=== PATIENT | female | born 1960 | race Caucasian/White ===

== ENCOUNTER 2019-09-17 19:20 | Observation (INO) | payer OTHER ==
[~2019-09-17] VITALS: Ht 165.1 cm; Wt 65.5 kg
[~2019-09-17 19:20] MED LIST: DOXYCYCLINE HY100 MG PO; LEVAQUIN500 MG PO; MERREM1 GM IV; VANCOMYCIN1 GM/250 M IV
--- OUTSIDE RECORDS SUMMARY | 2019-09-17 19:23 | XMS REPORT ---
Author Author [facility] Address Unknown Phone Unavailable Care Team Providers Care Ring Facer Name Role Phone HARJEET DE PAZ Unavailable Unavailable Problems This patient has no known problems. Allergies, Adverse Reactions, Alerts This patient has no known allergies or adverse reactions. Medications This patient has no known medications. Results Test Description Test Time Test Comments Text Results Atomic Results Result Comments CT CHEST WO [facility] [address] [address] Patient Name: JUDY ROLLINS MR #: [id number] : 1960 Age/Sex: 57/F Req #: [id number] Adm Physician: Ordered by: LEILA MAHARAJ MD Report #: [id number] Location: ER Room/Bed: Procedure: [id number] CT/CT CHEST WO Exam Date: 08/09/17 Exam Time: 1635 REPORT STATUS: Signed PROCEDURE: CT CHEST WITHOUT CONTRAST CT scan of the chest WITHOUT intravenous contrast, using standard protocol. TECHNIQUE: The chest was scanned utilizing a multidetector helical scanner from the apex to the level of the adrenal glands. Coronal and sagittal multiplanar reformations were obtained. DLP: 372.50 mGy-cm COMPARISON: [facility], CT, CT CHEST WO, 07/02/2017, 9:56. INDICATIONS: PNEUMONIA FINDINGS: Lines/tubes: None. Lungs and Airways: The lungs and airways are normal with no focal abnormality demonstrated. No pneumonia or consolidation. Pleura: The pleural spaces are clear. Heart and mediastinum: The thyroid gland is normal. No significant mediastinal, hilar or axillary lymphadenopathy is seen. The heart and pericardium are within normal limits. Soft tissues: Normal. Abdomen: The spleen is enlarged but not completely visualized. Bones: The visualized bony thorax is within normal limits. IMPRESSION: 1. Unremarkable CT scan of the chest; specifically there is no evidence of consolidation. 2. The spleen appears enlarged. Chelsea Anderson D.O. Dictated by: Chelsea Anderson D.O. on 08/09/2017 at 17:29 Electronically approved by: Chelsea Anderson D.O. on 08/09/2017 at 17:29 Dictated By: CHELSEA ANDERSON DO 28 Transcribed By: ELLY on 08/09/171728 COPY TO: LEILA MAHARAJ MD CT ABDOMEN/PELVIS W [address] [address] Patient Name: JUDY ROLLINS MR #: [id number] : 1960 Age/Sex: 57/F Req #: [id number] Adm Physician: HARJEET DE PAZ MD Ordered by: LEILA MAHARAJ MD Report #: [id number] Location: [facility] Room/Bed: [address] [address] Procedure: [id number] CT/CT ABDOMEN/PELVIS W Exam Date: 08/09/17 Exam Time: 2129 REPORT STATUS: Signed EXAM: CT ABDOMEN AND PELVIS with IV CONTRAST DATE: 08/09/2017 3:24 PM Time stamp on Exam: 2143 hours INDICATION: Elevated liver enzymes COMPARISON: CT of the chest without IV contrast July 02, 2017 TECHNIQUE: The abdomen and pelvis were scanned using a multidetector helical scanner. Coronal and sagittal reformations were obtained. Routine protocol performed. IV Contrast: 100 cc Isovue-370 Oral Contrast: Water CTDIvol has been reviewed. It is below the limits set by the Radiation Protocol Committee (RPC). FINDINGS: LOWER THORAX: No consolidations LIVER: Hepatomegaly, cirrhotic liver morphology and nodular contour. 7 mm hypodensity in segment 4A incompletely characterized on this exam. BILIARY: Small layering gallstone in an otherwise unremarkable gallbladder. No biliary dilation. SPLEEN: Splenomegaly to 16 cm in length. PANCREAS: No masses ADRENALS: No nodules KIDNEYS: Symmetric perfusion. No enhancing masses. No hydronephrosis. GI TRACT: No distention, wall thickening or evidence of obstruction. VESSELS: Atherosclerotic changes of the abdominal aorta without aneurysm. Conventional hepatic arterial anatomy. The main portal vein is enlarged and appears patent. The splenic vein is patent. Incidental circumaortic left renal vein. PERITONEUM/RETROPERITONEUM: No free air or fluid LYMPH NODES: No lymphadenopathy REPRODUCTIVE ORGANS: Unremarkable BLADDER: Unremarkable SOFT TISSUES: Unremarkable BONES: No suspicious bone lesions. IMPRESSION: Cirrhosis with evidence of portal hypertension. Signed by: Dr. Bert Bain M.D. on 08/09/2017 10:12 PM Dictated By: BERT BAIN MD 11 Transcribed By: ANAND on 08/09/172211 COPY TO: LEILA MAHARAJ MD
[2019-09-17] MEDS ORDERED: ASPIRIN 81 MG CHEW TAB PO ONE (20:00)
[2019-09-17] MEDS ORDERED: IBUPROFEN 600 MG TAB PO NR (20:00)
[2019-09-17 20:21] LABS: BASOPHILS % 0.3 % (0.0-1.0); EOSINOPHILS % 0.5 % (0.0-6.0); LYMPHOCYTES # (AUTO) 1.4 (1.0-3.2); LYMPHOCYTES % 24.1 % (18.0-39.1); MEAN CORPUSCULAR HEMOGLOBIN 31.1 pg (28-32); MEAN CORPUSCULAR HGB CONC 34.4 g/dL (31-35); MEAN CORPUSCULAR VOLUME 90.4 fL (81-99); MONOCYTES # (AUTO) 0.4 (0.2-0.8); MONOCYTES % 6.8 % (4.4-11.3); PLATELET COUNT 186 x10e3/uL (140-360); RED BLOOD COUNT 3.54 x10e6/uL (3.6-5.1); RED CELL DISTRIBUTION WIDTH 12.1 % (11.7-14.4)
[2019-09-17 20:38] LABS: COLOR,URINE YELLOW (YELLOW)
[2019-09-17 20:39] LABS: CLARITY,URINE CLEAR (CLEAR); LEUKOCYTE ESTERASE ,URINE SMALL (NEGATIVE); NITRITE,URINE NEGATIVE (NEGATIVE); PROTEIN,URINE DIPSTICK NEGATIVE (NEGATIVE)
[2019-09-17 20:40] LABS: ALANINE AMINOTRANSFERASE 11 IU/L (0-55); ALBUMIN 3.9 g/dL (3.5-5.0); ALBUMIN/GLOBULIN RATIO 1.2 (0.8-2.0); ALKALINE PHOSPHATASE 98 IU/L (40-150); ANION GAP 16.1 mmol/L (8-16); BACTERIA,URINE RARE /HPF; BILIRUBIN,URINE SMALL (NEGATIVE); BLOOD UREA NITROGEN 45 mg/dL (7-26); BUN/CREATININE RATIO 29 (6-25); CARBON DIOXIDE 22 mmol/L (22-29); CHLORIDE 108 mmol/L (98-107); CREATINE KINASE 57 IU/L (29-168); CREATININE, SERUM 1.56 mg/dL (0.57-1.11); EST GLOMERULAR FILTRATION RATE 34 ML/MIN (60-); GLUCOSE 83 mg/dL (74-118); KETONES,URINE NEGATIVE (NEGATIVE); POTASSIUM 5.1 mmol/L (3.5-5.1); RBC,URINE 0-5 /HPF (0-5); SODIUM 141 mmol/L (136-145); URINE UROBILINOGEN 0.2 mg/dL (0.2 - 1); WBC,URINE (MAN) 0-5 /HPF (0-5)
[2019-09-17 20:41] LABS: CALCIUM 9.9 mg/dL (8.4-10.2); EPITHELIAL CELLS,URINE FEW /LPF
--- NOTE | 2019-09-17 22:09 | Diagnostic Imaging Report ---
EXAMINATION: CHEST SINGLE (PORTABLE) INDICATION: ^chest pain ^[id number] ^2029 ^Y COMPARISON: 05/10/2017 FINDINGS: AP view TUBES and LINES: None. LUNGS: Lungs are well inflated. There is no evidence of pneumonia or pulmonary edema. PLEURA: No significant pleural effusion or pneumothorax. HEART AND MEDIASTINUM: The cardiomediastinal silhouette is unremarkable. BONES AND SOFT TISSUES: No acute osseous lesion. Soft tissues are unremarkable. UPPER ABDOMEN: No free air under the diaphragm. IMPRESSION: No acute thoracic abnormality. Signed by: Dr. Dwaine Hernandez MD on 09/17/2019 10:05 PM
[2019-09-17] MEDS ORDERED: NON-FORMULARY MEDICATION (Methocarbamol 750 MG) PO PRN (22:30)
[2019-09-17] MEDS ORDERED: NON-FORMULARY MEDICATION (Ondansetron Hcl* (Zofran*) 4 MG) PO PRN (22:30)
[2019-09-17] MEDS ORDERED: TRAMADOL HCL 50 MG TAB PO PRN (22:30)
[2019-09-17] MEDS ORDERED: ASPIR 8181 MG PO (22:32)
[2019-09-17] MEDS ORDERED: PREDNISONE5 MG PO (22:32)
[2019-09-17] MEDS ORDERED: ZOFRAN4 MG PO (22:32)
[2019-09-17] MEDS ORDERED: ULTRAM 50MG50 MG PO (22:32)
[2019-09-17] MEDS ORDERED: FLUCONAZOLE100 MG PO (22:32)
[2019-09-17] MEDS ORDERED: VITAMIN D1000 UNI1 PO (22:32)
[2019-09-17] MEDS ORDERED: CYCLOSPORINE25 MG PO (22:32)
[2019-09-17] MEDS ORDERED: METHOCARBAMOL750 MG PO (22:32)
[2019-09-17] MEDS ORDERED: MORPHINE SULFATE 2 MG/ML SYR 1ML IV PRN (22:45)
[2019-09-17] MEDS ORDERED: FAMOTIDINE 20 MG TAB PO SCH (22:45)
[2019-09-17] MEDS ORDERED: ONDANSETRON HCL INJ 2MG/ML 2ML 2 MG/ML VIAL IV PRN (22:45)
[2019-09-17] MEDS ORDERED: SODIUM CHLORIDE FLUSH 10 ML SYR INJ PRN (22:45)
[2019-09-17] MEDS: SODIUM CHLORIDE 0.9% 1000ML 1,000 ML IV SCH (23:09)
[2019-09-17] MEDS ORDERED: METHOCARBAMOL 750 MG TAB PO PRN (23:15)
[2019-09-17] MEDS ORDERED: ONDANSETRON HCL 4 MG ORAL DISINTEGRATING TAB PO PRN (23:15)
[2019-09-18] VITALS (12 sets, daily range): BP systolic 91–147; BP diastolic 60–87
--- NOTE | 2019-09-18 02:34 | NUR ---
Patient admitted from ER. Patient alert/oriented X3. Denied pain and no SOB. Respiration even and unlabored. Spo2 maintained 100% with RA. Head to toe assessment completed. No skin breakdown noted. Bed in lower position,locked. call tee within reach. Will continue to monitor.
--- NOTE | 2019-09-18 07:24 | NUR ---
Report given to oncoming JACQUIE Antonio, walking round done.
[2019-09-18 07:31] LABS: BASOPHILS % 0.4 % (0.0-1.0); EOSINOPHILS # (AUTO) 0.1 (0.0-0.4); EOSINOPHILS % 1.9 % (0.0-6.0); HEMATOCRIT 28.6 % (34.2-44.1); HEMOGLOBIN 9.5 g/dL (12.0-16.0); LYMPHOCYTES # (AUTO) 2.1 (1.0-3.2); LYMPHOCYTES % 44.3 % (18.0-39.1); MEAN CORPUSCULAR HEMOGLOBIN 30.3 pg (28-32); MEAN CORPUSCULAR HGB CONC 33.2 g/dL (31-35); MEAN CORPUSCULAR VOLUME 91.1 fL (81-99); MONOCYTES # (AUTO) 0.4 (0.2-0.8); MONOCYTES % 9.1 % (4.4-11.3); NEUTROPHILS # (AUTO) 2.1 (2.1-6.9); NEUTROPHILS % 44.1 % (38.7-80.0); PLATELET COUNT 123 x10e3/uL (140-360); RED BLOOD COUNT 3.14 x10e6/uL (3.6-5.1); RED CELL DISTRIBUTION WIDTH 12.2 % (11.7-14.4)
[2019-09-18] MEDS: ASPIRIN 81 MG ENTERIC COATED PO SCH (07:58)
[2019-09-18] MEDS: PREDNISONE 5 MG TAB PO SCH (07:59)
[2019-09-18] MEDS: CHOLECALCIFEROL 1,000 UNIT TAB PO SCH (07:59)
[2019-09-18] MEDS: SODIUM CHLORIDE 0.9% 1000ML 1,000 ML IV SCH (08:00)
[2019-09-18 08:11] LABS: ANION GAP 14.6 mmol/L (8-16); CHOL/HDL RATIO 4.1 (3.0-3.6); CREATININE, SERUM 1.88 mg/dL (0.57-1.11); POTASSIUM 4.6 mmol/L (3.5-5.1)
[2019-09-18 08:18] LABS: CREATINE KINASE MB 0.7 ng/mL (0-5.0)
[2019-09-18] MEDS: FLUCONAZOLE 100 MG TAB PO SCH (08:52)
[2019-09-18] MEDS: FAMOTIDINE 20 MG/2 ML VIAL IV SCH ×2 (08:52→17:32)
[2019-09-18] MEDS: CYCLOSPORINE 25 MG CAP PO SCH ×2 (08:52→17:32)
[2019-09-18] MEDS ORDERED: ASPIRIN 81 MG CHEW TAB PO SCH (09:00)
[2019-09-18] MEDS ORDERED: MIDAZOLAM HCL 2 MG/2 ML VIAL ONE (10:45)
[2019-09-18] MEDS ORDERED: FENTANYL CITRATE/PF 100MCG/2 ML INJ ONE (10:45)
[2019-09-18] MEDS ORDERED: SODIUM CHLORIDE 0.9% 1000ML 1,000 ML ONE (10:46)
[2019-09-18] MEDS ORDERED: IOPAMIDOL 370 MG/ML 200 ML INFUS..BTL INJ ONE (10:46)
[2019-09-18] MEDS ORDERED: LIDOCAINE HCL 2% LOCAL 20 ML VIAL ONE (10:46)
[2019-09-18] MEDS ORDERED: HEPARIN SOD/SOD CHLORIDE 2,000 ML ONE (10:46)
[2019-09-18] MEDS ORDERED: ATROPINE SULFATE 0.1 MG/ML 10ML SYR ONE (11:41)
[2019-09-18] MEDS ORDERED: SODIUM CHLORIDE 0.9% 1000ML 1,000 ML IV SCH ×2 (11:48→12:00)
[2019-09-18] MEDS ORDERED: ONDANSETRON HCL INJ 2MG/ML 2ML 2 MG/ML VIAL IV PRN (12:00)
--- NOTE | 2019-09-18 12:25 | NUR ---
Pt arrived back from microbiology lab technician via bed, with assist x2. A&O x3, resp WNL. Dressing applied to R groin, CDI, area soft to touch. Pedal pulses assessed and present bilaterally. To continue bed rest till 1600. Call light within reach, bed in lowest position.
--- NOTE | 2019-09-18 13:24 | Operative Report ---
DATE OF PROCEDURE: 09/18/2019 SURGEON: Francesco Prescott MD REPORT TITLE: Cardiac Catheterization PROCEDURES PERFORMED: Left heart cardiac catheterization, coronary angiography. INDICATION FOR PROCEDURE: A 59-year-old lady with history of COPD, smoker, clinical evidence of PAD, prior history of liver transplant, and chronic kidney disease stage 3, who presents to this institution with escalating chest pain symptoms and had an abnormal exercise treadmill stress test earlier today, which was sub max with the development of chest pain and 1 to 1.5 mm EKG changes. DESCRIPTION OF PROCEDURE: After risks, benefits, pros and cons of today's procedure were explained, the patient agreed to proceed. The patient was brought to the cardiac catheterization laboratory where the right groin was prepped and draped in usual sterile fashion. A 1% lidocaine solution was used to numb the right groin region. Access to the right femoral artery was obtained and a 4-Greek short femoral sheath was placed. Selective coronary angiography of the minto left number record is performed with JL4 and JR4 diagnostic catheters respectively. The aortic valve was then crossed on account of her chronic kidney disease and all attempts to minimize contrast was utilized for this case. Essentially the diagnostic angiography revealed a 40% to 50% mid LAD stenosis just after the first diagonal branch takeoff. However, there was no critical disease noted on this study. For this reason, we elected to leave her alone and opt for medical therapy. At the conclusion of the case, the femoral sheath was removed and manual compression was applied successfully achieving hemostasis. COMPLICATIONS: None. ESTIMATED BLOOD LOSS: None. FINDINGS: 1. Left main is angiographically normal and gives rise to an LAD, ramus intermedius, and circumflex branch. 2. LAD is a 40% to 50% focal mid lesion just after the takeoff of the first diagonal branch. The remainder of this vessel and its branches are just minimal disease. 3. The ramus intermedius is a moderate caliber vessel, supplies anterolateral wall. This vessel just mild irregularities. 4. The left circumflex artery is codominant and has essentially terminates into a bifurcating posterolateral marginal branch. This vessel and its branches are angiographically normal. 5. RCA is a codominant essentially terminates into the right PDA. This vessel branches are largely angiographically normal. PLAN/RECOMMENDATIONS: 1. Overall just recommend risk factor modification, medical therapy and including smoking cessation counseling provided. 2. A 4-5-hour bedrest post cardiac catheterization today. 3. We will attempt to make the patient CD for her, so she can take with her. MD QUITA Del Castillo/AV /[id number]
--- NOTE | 2019-09-18 13:24 | EXERCISE STRESS TEST ---
DATE OF STUDY: 09/18/2019 09:59:00 Stress Test - Treadmill ONLY TITLE OF REPORT: Exercise treadmill stress test. INDICATION FOR STUDY: Chest pain. TECHNICAL DETAILS: After risks, benefits, pros and cons of today's exercise treadmill stress test were explained to the patient, the patient agreed to proceed. She was brought down to the stress lab where 12-lead EKG monitoring and blood pressure monitoring were obtained. She exercised on a Nico protocol exercising for a total duration of 5 minutes and 47 seconds. Baseline heart rate was 68 beats per minute and maximum heart rate achieved was 127 beats per minute, well below our target heart rate of 138 beats per minute. The stress test was submax. It had to be terminated due to the development of ischemic EKG changes associated with chest pain, nausea, and typical angina-type complaints. Blood pressure went from a baseline of 138/83 to 180/90, which is an appropriate hemodynamic response. Underlying rhythm revealed normal sinus rhythm and normal axis, and at peak exercise, there are positive ischemic EKG changes in the inferior and lateral precordial leads of about 1 to 1.5 mm downsloping changes noted. Overall, the study was also noted to be submax with the inability to achieve target heart rate. CONCLUSIONS: 1. Positive and abnormal submax exercise treadmill stress test positive for the development of ischemic EKG changes and chest pain. 2. Overall findings to the exercise treadmill stress test are compatible with a high risk stress test. 3. Findings of the stress test extensively explained to the patient including limitations and we will proceed with next step, which will be cardiac catheterization as the patient's chest pain started at a low workload at a minute and a half of the protocol and continued to persist well over 8-9 minutes post stress test today. MD QUITA Del Castillo/AV /[id number]
[2019-09-18 14:48] LABS: CREATINE KINASE 44 IU/L (29-168)
--- NOTE | 2019-09-18 15:19 | Consultation ---
DATE OF CONSULTATION: 09/18/2019 REASON FOR CONSULTATION: Chest pain. CHIEF COMPLAINT: Chest pain/shortness of breath. HISTORY OF PRESENT ILLNESS: This is a 59-year-old female with history of autoimmune hepatitis, status post liver transplant on October 08, 2018 at [facility], chronic kidney disease. The patient presents to [facility] with complaints of chest pain. Cardiac enzymes negative x4. EKG without changes suggestive of acute event. Cardiology was consulted to evaluate the patient's symptoms. The patient is seen in room, in no acute distress. Reports about 3 weeks ago was at a football game, was walking around stadium, started having chest pain and tightness, which was relieved with rest. However, on Wednesday, was at a soccer game and when she was walking around stadium, developed some lightheadedness and chest pain, pressure, retrosternal, nonradiating, and relieved with rest. However, on Wednesday, the patient reports was unable to walk across her house without becoming extremely short of breath. Therefore, she came to the ER for further evaluation. Currently, denies any chest pains since Wednesday. PAST MEDICAL HISTORY: Liver transplant, October 08, 2018 at [place], [place], chronic kidney disease, tobacco use. PAST SURGICAL HISTORY: Liver transplant and cholecystectomy. FAMILY HISTORY: Mother , apparently had autoimmune hepatitis. Father from complications of colon cancer. SOCIAL HISTORY: She is a . Currently, on leave from [employer]. She smokes a quarter-pack per day. Denies any alcohol use. HOME MEDICATIONS: Include aspirin 81 mg daily, cyclosporine 75 mg b.i.d., fluconazole 100 mg p.o. daily, methocarbamol p.r.n., Zofran 4 mg q.4 p.r.n., and prednisone 5 mg daily. ALLERGIES: NO KNOWN ALLERGIES. REVIEW OF SYSTEMS: GENERAL: Denies any weight changes, fatigue, weakness, fevers, chills, or night sweats. SKIN: No rashes or bruises reported. HEENT: Denies any nausea, vomiting, vision changes, blurred vision, double vision, epistaxis, sore throat, swollen neck, or hoarseness. CARDIAC: Chest pain as above. Shortness of breath as above. Denies any palpitations, orthopnea, PND, or lower extremity edema. RESPIRATORY: Positive for shortness of breath. Denies any wheezing, coughing, or hemoptysis. GI: Denies any decrease in appetite. Denies any nausea, vomiting, any bloody or tarry stools. URINARY: Denies any frequency, urgency, dysuria, or hematuria. VASCULAR: Denies any lower extremity edema or claudication. MUSCULOSKELETAL: Denies any muscle weakness. Positive for generalized joint pain. NEUROLOGIC: Denies any numbness, tingling, tremors, weakness, paralysis, fainting, or seizures. HEMATOLOGY: Denies easy bruising and bleeding. ENDOCRINE: Denies any heat or cold intolerance, polyuria, polydipsia, or polyphagia. PHYSICAL EXAMINATION: VITAL SIGNS: Height 65 inches, weight 144 pounds, BMI 24, temperature 97.3, pulse 62, respiratory rate 18, blood pressure 136/66, and 100% on room air. GENERAL: Appears stated age, reliable informant, in no acute distress. SKIN: No rashes or bruises noted. HEENT: Normocephalic. Pupils are equal, round, and reactive. Extraocular movements are intact. Trachea midline. No JVD. No thyromegaly noted. Oral mucosa pink. HEART: Regular rate and rhythm. No murmurs or clicks noted. LUNGS: Bilateral breath sounds clear to auscultation. No wheezing or rales. ABDOMEN: Soft, nontender, and nondistended. No organomegaly noted. Abdominal scar noted. MUSCULOSKELETAL: Good muscle strength throughout. No lower extremity swelling. VASCULAR: +2 bilateral radial pulses, +1 bilateral femoral pulses, +1 bilateral DP and PT pulses bilaterally. NEUROLOGIC: Cranial nerves II through XII seem intact. LABORATORY DATA: Sodium 140, potassium 4.6, chloride 110, BUN 53, and creatinine 1.8. Troponin less than 0.001, next 0.007. BNP 25. White count 4, hemoglobin 9.5, initially 11, hematocrit 28, and platelets 123. D-dimer 0.31. Chest x-ray, no acute abnormalities. EKG, normal sinus rhythm. ASSESSMENT AND PLAN: 1. Chest pain. 2. Dyspnea on exertion. 3. Chronic kidney disease. 4. Tobacco use. 5. Peripheral vascular disease by exam. 6. Status post liver transplant, on immunosuppressive therapy. PLAN: 1. The patient presents with chest pain and shortness of breath. Cardiac enzymes negative thus far. On discussion with the patient regarding ischemic workup, we will proceed with a stress test this morning. 2. We will go ahead and get an echo to evaluate heart function and structure. 3. Continue aspirin therapy. 4. The patient already on her immunosuppressive therapy given her status post liver transplant. 5. Further recommendations post ischemic workup. Thank you very much for this consult. Dictated by Luiz Parham, [employer] Anu Prescott MD DC/MODL /[id number]
--- NOTE | 2019-09-18 16:33 | NUR ---
Pt off bedrest as of 1600. Ambulating in room at this time, gait is slow. Able to ambulate by self without assistance. Femoral site soft to touch, pedal pulses present.
--- NOTE | 2019-09-18 19:00 | NUR ---
received report from day nurse. patient is resting comfortably in bed. bed is in lowest position and call tee is within reach. will continue to monitor patient.
[2019-09-19] VITALS: BP 116/70
[2019-09-19] MEDS: SODIUM CHLORIDE 0.9% 1000ML 1,000 ML IV SCH ×2 (03:00→08:49)
[2019-09-19 04:00] VITALS: BP 124/71
--- NOTE | 2019-09-19 07:21 | NUR ---
report given to day nurse. patient is resting comfortably in bed. bed is in lowest position and call tee is within reach.
[2019-09-19 07:37] VITALS: BP 130/63
[2019-09-19 07:42] LABS: ALBUMIN 3.2 g/dL (3.5-5.0); ALBUMIN/GLOBULIN RATIO 1.2 (0.8-2.0); ANION GAP 11.7 mmol/L (8-16); CALCIUM 8.9 mg/dL (8.4-10.2); CREATININE, SERUM 1.41 mg/dL (0.57-1.11); POTASSIUM 4.7 mmol/L (3.5-5.1)
[2019-09-19 07:48] LABS: BASOPHILS % 0.2 % (0.0-1.0); EOSINOPHILS # (AUTO) 0.1 (0.0-0.4); EOSINOPHILS % 1.4 % (0.0-6.0); HEMATOCRIT 27.5 % (34.2-44.1); HEMOGLOBIN 9.3 g/dL (12.0-16.0); MEAN CORPUSCULAR HEMOGLOBIN 30.8 pg (28-32); MEAN CORPUSCULAR HGB CONC 33.8 g/dL (31-35); MEAN CORPUSCULAR VOLUME 91.1 fL (81-99); MONOCYTES # (AUTO) 0.4 (0.2-0.8); MONOCYTES % 7.9 % (4.4-11.3); NEUTROPHILS # (AUTO) 2.5 (2.1-6.9); NEUTROPHILS % 50.3 % (38.7-80.0); PLATELET COUNT 121 x10e3/uL (140-360); RED BLOOD COUNT 3.02 x10e6/uL (3.6-5.1); RED CELL DISTRIBUTION WIDTH 12.2 % (11.7-14.4)
[2019-09-19] MEDS: ASPIRIN 81 MG ENTERIC COATED PO SCH (08:49)
[2019-09-19] MEDS: FAMOTIDINE 20 MG/2 ML VIAL IV SCH (08:49)
[2019-09-19] MEDS: FLUCONAZOLE 100 MG TAB PO SCH (08:49)
[2019-09-19] MEDS: CYCLOSPORINE 25 MG CAP PO SCH (08:49)
[2019-09-19] MEDS: CHOLECALCIFEROL 1,000 UNIT TAB PO SCH (08:49)
[2019-09-19] MEDS: PREDNISONE 5 MG TAB PO SCH (08:49)
[2019-09-19 09:43] VITALS: BP 130/63
[2019-09-19 11:24] VITALS: BP 128/66
[2019-09-19 15:24] VITALS: BP 134/69
--- NOTE | 2019-09-23 06:07 | Discharge Summary ---
DISCHARGE DIAGNOSIS: Chest pain, rule out myocardial infarction. HISTORY OF PRESENT ILLNESS AND HOSPITAL COURSE: See also chart for full details. The patient is a lady, who presented with some chest pain. Cardiac enzymes are negative. Stress test showed positive stress test, so she was then taken to the medical lab tech instructor where she actually had clean coronaries. So post cardiac cath, she was able to be discharged home. We will follow up with her primary care physician as well as Cardiology in 1 to 2 weeks. Please see hospital chart for full details. MD MELY Jean/AV /[id number]
== END 2019-09-19 15:31 | disposition home or self-care (01) ==
LOC: ER 19:20 → ERHOLD 22:38 → IMCU 09-18 01:09
PROVIDERS: ADMIT Internal Medicine; ATTEND Internal Medicine
DX: I25.10 Atherosclerotic heart disease of native coronary artery without angina pectoris (principal); K75.4 Autoimmune hepatitis; Z94.4 Liver transplant status; F17.200 Nicotine dependence, unspecified, uncomplicated; I73.9 Peripheral vascular disease, unspecified; I12.9 Hypertensive chronic kidney disease with stage 1 through stage 4 chronic kidney disease, or unspecified chronic kidney disease; N18.3 Chronic kidney disease, stage 3 (moderate); D63.1 Anemia in chronic kidney disease; J44.9 Chronic obstructive pulmonary disease, unspecified; I25.119 Atherosclerotic heart disease of native coronary artery with unspecified angina pectoris; R94.39 Abnormal result of other cardiovascular function study
CPT/HCPCS: 36415 ×3; 71045; 80048; 80053 ×2; 80061; 81001; 82550 ×2; 82553 ×2; 83880; 84484 ×2; 85025 ×3; 85379; 87400; 93005; 93017; 93306; 93454; 99284; C1766; C1769; G0378 ×3; J2001; J2250; J3010; J7030 ×3; J7512 ×2; J7515 ×2; Q9967; 99152